=== PATIENT | female | born 1940 | race Caucasian/White ===

== ENCOUNTER 2022-06-07 06:56 | Emergency (ER) | payer OTHER ==
[2022-06-07 07:14] VITALS: BMI 31.3
[2022-06-07] MEDS ORDERED: SODIUM CHLORIDE 0.9% 500 ML INFUS.BAG IV ONE (08:49)
[2022-06-07] MEDS ORDERED: ONDANSETRON 4 MG/2 ML VIAL IVPUSH ONE (09:19)
[2022-06-07] MEDS ORDERED: METOPROLOL TARTRATE 5 MG/5 ML VIAL ONE (09:26)
[2022-06-07] MEDS ORDERED: dilTIAZem HCL 125 MG/25 ML - 25 ML VIAL ONE (09:28)
[2022-06-07] MEDS ORDERED: ONDANSETRON 4 MG/2 ML VIAL ONE (09:33)
[2022-06-07 11:09] LABS: BASO % 0.3 % (0-2.0); EOS % 0.4 % (0-4.5); HEMATOCRIT 41.2 % (32.4-45.2); HEMOGLOBIN 13.3 GM/dL (10.7-15.3); LYMPH % 12.9 % (8-40); MCH 30.4 pg (25.7-33.7); MCHC 32.3 g/dl (32.0-36.0); MEAN CELL VOLUME 94.1 fl (80-96); MEAN PLT VOLUME 10.1 fl (7.5-11.1); NEUT % 76.4 % (42.8-82.8); PLATELET COUNT 238 10^3/uL (134-434); RBC 4.37 M/mm3 (3.60-5.2); WHITE BLOOD COUNT 7.5 K/mm3 (4.0-10.0)
[2022-06-07 11:16] LABS: INR 0.99 (0.83-1.09); PROTHROMBIN TIME (PATIENT) 11.4 SEC (9.7-13.0)
[2022-06-07 11:32] LABS: CHLORIDE 106 mmol/L (98-107); SODIUM 136 mmol/L (136-145)
[2022-06-07 11:34] LABS: BLOOD UREA NITROGEN 23.5 mg/dL (7-18); CALCIUM 8.3 mg/dL (8.5-10.1)
[2022-06-07 11:35] LABS: ALBUMIN 3.7 g/dl (3.4-5.0); CO2 22 mmol/L (21-32); GLUCOSE,RANDOM 91 mg/dL (74-106); LIPASE 37 U/L (73-393); MAGNESIUM 2.2 mg/dL (1.8-2.4)
[2022-06-07 11:38] LABS: CREATININE 0.9 mg/dL (0.55-1.3)
[2022-06-07 11:39] LABS: BILIRUBIN,TOTAL 1.1 mg/dL (0.2-1); TOT PROT 8.4 g/dl (6.4-8.2)
[2022-06-07 11:41] LABS: ALK PHOS 65 U/L (45-117)
[2022-06-07 11:42] LABS: ANION GAP 8 MMOL/L (8-16); SGOT/AST 84 U/L (15-37); SGPT/ALT 30 U/L (13-61)
[2022-06-07 12:25] VITALS: BP 136/68; PULSE 71; RESP 19; TEMP 98
[2022-06-07 13:10] LABS: CALCIUM 8.1 mg/dL (8.5-10.1)
[2022-06-07 13:11] LABS: BLOOD UREA NITROGEN 22.8 mg/dL (7-18)
[2022-06-07 13:14] LABS: CREATININE 0.9 mg/dL (0.55-1.3)
== END 2022-06-07 18:56 ==
LOC: JER 06:56
PROC: 3E033GC Introduction of Other Therapeutic Substance into Peripheral Vein, Percutaneous Approach (ICD-10-PCS; principal; 2022-06-07)
DX: R19.7 Diarrhea, unspecified (principal)
CPT/HCPCS: 0241U-QW; 36415; 74177-TC; 80048; 80053; 83690; 83735; 85025; 85610; 85730; 93005; 93010; 99285-25; Q9967

== ENCOUNTER 2022-06-29 06:41 | Emergency (ER) | payer OTHER ==
[2022-06-29 06:54] VITALS: RESP 18; BMI 30.2
[2022-06-29] MEDS ORDERED: ACETAMINOPHEN 325 MG TABLET (FP) PO ONE (07:25)
[2022-06-29] MEDS ORDERED: ACETAMINOPHEN 325 MG TABLET (FP) ONE (07:43)
[2022-06-29 10:34] VITALS: BP 127/83; PULSE 68; TEMP 98
== END 2022-06-29 11:40 | disposition home or self-care (01) ==
LOC: JER 06:41
DX: S30.0XXA Contusion of lower back and pelvis, initial encounter (principal); W19.XXXA Unspecified fall, initial encounter
CPT/HCPCS: 72170-TC-FY; 73502-TC-RT-FY; 99283-25

== ENCOUNTER 2022-10-26 20:33 | Inpatient (IN) | payer OTHER ==
[2022-10-26 20:50] VITALS: BMI 29.9
[2022-10-26] MEDS ORDERED: LIDOCAINE 5% TOPICAL PATCH TP ONE (21:15)
[2022-10-26] MEDS ORDERED: LIDOCAINE 5% TOPICAL PATCH ONE (21:21)
[2022-10-26 21:51] LABS: EPI CELLS 16 /uL (0-25.1); HYALINE CASTS 1 /uL (0-3.1); PH,URINE 5.5 (5.0-8.0); URINE APPEARANCE CLEAR; URINE BACTERIA 36 /uL (0-1359); URINE BILIRUBIN NEGATIVE (NEGATIVE); URINE COLOR YELLOW; URINE GLUCOSE (UA) NEGATIVE (NEGATIVE); URINE KETONE TRACE (NEGATIVE); URINE LEUK ESTERASE TRACE (NEGATIVE); URINE NITRITE NEGATIVE (NEGATIVE); URINE PROTEIN TRACE (NEGATIVE); URINE RBC 13 /uL (0-23.9); URINE WBC 46 /uL (0-25.8)
[2022-10-26] MEDS ORDERED: ACETAMINOPHEN 500 MG TABLET (FP) PO ONE (21:53)
[2022-10-26] MEDS ORDERED: LIDOCAINE PATCH REMOVAL MC ONE (22:00)
[2022-10-26] MEDS ORDERED: ACETAMINOPHEN 325 MG TABLET (FP) ONE (22:38)
[2022-10-26] MEDS ORDERED: ACETAMINOPHEN INJECTION 100 ML IVPB ONE (22:44)
[2022-10-26 22:51] LABS: BASO % 0.6 % (0-2.0); EOS % 2.2 % (0-4.5); HEMATOCRIT 35.2 % (32.4-45.2); HEMOGLOBIN 11.5 GM/dL (10.7-15.3); LYMPH % 14.3 % (8-40); MCH 29.2 pg (25.7-33.7); MCHC 32.7 g/dl (32.0-36.0); MEAN CELL VOLUME 89.2 fl (80-96); MONO % 9.8 % (3.8-10.2); NEUT % 73.1 % (42.8-82.8); PLATELET COUNT 279 10^3/uL (134-434); RBC 3.95 M/mm3 (3.60-5.2); RDW 14.9 % (11.6-15.6); WHITE BLOOD COUNT 11.4 K/mm3 (4.0-10.0)
[2022-10-26] MEDS ORDERED: ACETAMINOPHEN 1000 MG/100 ML BAG IVPB ONE (22:51)
[2022-10-26 23:19] LABS: POTASSIUM 3.6 mmol/L (3.5-5.1)
[2022-10-26 23:21] LABS: ALBUMIN 3.5 g/dl (3.4-5.0)
[2022-10-26 23:22] LABS: BLOOD UREA NITROGEN 17.6 mg/dL (7-18)
[2022-10-26 23:24] LABS: CREATININE 0.9 mg/dL (0.55-1.3)
[2022-10-26 23:26] LABS: BILIRUBIN,TOTAL 1.1 mg/dL (0.2-1); TOT PROT 7.6 g/dl (6.4-8.2)
[2022-10-27] MEDS ORDERED: POLYETHYLENE GLYCOL 3350 255 GM BTL PO PRN (06:43)
[2022-10-27] MEDS ORDERED: MAGNESIUM HYDROX 2400MG/30ML ORAL SUSPENSION 30 ML CUP PO PRN (06:43)
[2022-10-27] MEDS ORDERED: POLYETHYLENE GLYCOL (HEALTHYLAX) 3350 17 GM PACKET PO PRN (07:20)
[2022-10-27] MEDS: GABAPENTIN 100 MG CAPSULE PO SCH ×3 (08:33→21:29)
[2022-10-27 08:41] LABS: BASO % 0.7 % (0-2.0); EOS % 2.6 % (0-4.5); HEMATOCRIT 33.8 % (32.4-45.2); LYMPH % 12.1 % (8-40); MCH 29.5 pg (25.7-33.7); MCHC 32.5 g/dl (32.0-36.0); MEAN CELL VOLUME 90.7 fl (80-96); MEAN PLT VOLUME 10.2 fl (7.5-11.1); MONO % 10.1 % (3.8-10.2); NEUT % 74.5 % (42.8-82.8); PLATELET COUNT 275 10^3/uL (134-434); RBC 3.73 M/mm3 (3.60-5.2); RDW 14.5 % (11.6-15.6); WHITE BLOOD COUNT 8.7 K/mm3 (4.0-10.0)
[2022-10-27 08:49] LABS: POTASSIUM 3.7 mmol/L (3.5-5.1)
[2022-10-27 08:51] LABS: BLOOD UREA NITROGEN 14.9 mg/dL (7-18)
[2022-10-27 08:54] LABS: CREATININE 0.8 mg/dL (0.55-1.3)
[2022-10-27] MEDS ORDERED: ACETAMINOPHEN WITH CODEINE 300MG/30MG TABLET PO PRN (08:57)
[2022-10-27] MEDS: CHOLECALCIFEROL (VIT D3) 1,000 UNIT (25 MCG) TABLET PO SCH (09:12)
[2022-10-27] MEDS: hydrALAZINE HCL 10 MG TABLET PO SCH ×2 (09:12→21:29)
[2022-10-27] MEDS: ASCORBIC ACID 500 MG TABLET (FP) PO SCH (09:12)
[2022-10-27] MEDS: FUROSEMIDE 40 MG TABLET (FP) PO SCH (09:12)
[2022-10-27] MEDS: PANTOPRAZOLE 40 MG TABLET PO SCH (09:12)
[2022-10-27] MEDS: ACETAMINOPHEN WITH CODEINE 300MG/30MG TABLET PO PRN ×2 (09:13→19:11)
[2022-10-27] MEDS: LIDOCAINE 5% TOPICAL PATCH TP SCH (11:37)
[2022-10-27] MEDS: NEO/POLYMYX B SULF/DEXAMETH OPHTHALMIC 5ML BOTTLE OU SCH (11:38)
[2022-10-27 13:03] LABS: MAGNESIUM 2.2 mg/dL (1.8-2.4)
[2022-10-27 13:06] LABS: PHOSPHOROUS 2.9 mg/dL (2.5-4.9)
[2022-10-27] MEDS: ATORVASTATIN CA 10 MG TABLET (FP) PO SCH (21:29)
[2022-10-27] MEDS: LIDOCAINE PATCH REMOVAL MC SCH (21:42)
[2022-10-28] MEDS: GABAPENTIN 100 MG CAPSULE PO SCH ×3 (05:24→22:00)
[2022-10-28 09:58] LABS: BASO % 0.7 % (0-2.0); EOS % 3.5 % (0-4.5); HEMATOCRIT 35.8 % (32.4-45.2); HEMOGLOBIN 11.8 GM/dL (10.7-15.3); LYMPH % 13.6 % (8-40); MCH 29.3 pg (25.7-33.7); MCHC 32.9 g/dl (32.0-36.0); MEAN CELL VOLUME 89.1 fl (80-96); MONO % 11.4 % (3.8-10.2); NEUT % 70.8 % (42.8-82.8); PLATELET COUNT 287 10^3/uL (134-434); RBC 4.02 M/mm3 (3.60-5.2); WHITE BLOOD COUNT 7.5 K/mm3 (4.0-10.0)
[2022-10-28 10:19] LABS: CALCIUM 8.7 mg/dL (8.5-10.1)
[2022-10-28 10:23] LABS: CREATININE 0.9 mg/dL (0.55-1.3)
[2022-10-28 10:27] LABS: N-TERMINAL BNP 494.6 pg/ml (5-450)
[2022-10-28] MEDS: ACETAMINOPHEN WITH CODEINE 300MG/30MG TABLET PO PRN (10:42)
[2022-10-28] MEDS: LIDOCAINE 5% TOPICAL PATCH TP SCH (10:42)
[2022-10-28] MEDS: PANTOPRAZOLE 40 MG TABLET PO SCH (10:42)
[2022-10-28] MEDS: CHOLECALCIFEROL (VIT D3) 1,000 UNIT (25 MCG) TABLET PO SCH (10:42)
[2022-10-28] MEDS: ASCORBIC ACID 500 MG TABLET (FP) PO SCH (10:42)
[2022-10-28] MEDS: FUROSEMIDE 40 MG TABLET (FP) PO SCH (10:43)
[2022-10-28] MEDS: hydrALAZINE HCL 10 MG TABLET PO SCH ×2 (10:43→22:00)
[2022-10-28] MEDS: NEO/POLYMYX B SULF/DEXAMETH OPHTHALMIC 5ML BOTTLE OU SCH (10:44)
[2022-10-28] MEDS: LIDOCAINE PATCH REMOVAL MC SCH (22:00)
[2022-10-28] MEDS: ATORVASTATIN CA 10 MG TABLET (FP) PO SCH (22:00)
[2022-10-29] MEDS: GABAPENTIN 100 MG CAPSULE PO SCH ×3 (06:11→22:15)
[2022-10-29] MEDS: PANTOPRAZOLE 40 MG TABLET PO SCH (10:22)
[2022-10-29] MEDS: CHOLECALCIFEROL (VIT D3) 1,000 UNIT (25 MCG) TABLET PO SCH (10:22)
[2022-10-29] MEDS: ASCORBIC ACID 500 MG TABLET (FP) PO SCH (10:22)
[2022-10-29] MEDS: hydrALAZINE HCL 10 MG TABLET PO SCH ×2 (10:22→22:15)
[2022-10-29] MEDS: NEO/POLYMYX B SULF/DEXAMETH OPHTHALMIC 5ML BOTTLE OU SCH (10:22)
[2022-10-29] MEDS: FUROSEMIDE 40 MG TABLET (FP) PO SCH (10:22)
[2022-10-29] MEDS: LIDOCAINE 5% TOPICAL PATCH TP SCH (10:22)
[2022-10-29] MEDS ORDERED: AMOX TR/POT CLAV 500MG/125MG TABLETS (FP) PO SCH (17:30)
[2022-10-29] MEDS: ATORVASTATIN CA 10 MG TABLET (FP) PO SCH (22:14)
[2022-10-29] MEDS: LIDOCAINE PATCH REMOVAL MC SCH (22:23)
[2022-10-30] MEDS: GABAPENTIN 100 MG CAPSULE PO SCH ×3 (05:37→21:46)
[2022-10-30] MEDS: LIDOCAINE 5% TOPICAL PATCH TP SCH (10:15)
[2022-10-30] MEDS: FUROSEMIDE 40 MG TABLET (FP) PO SCH (10:15)
[2022-10-30] MEDS: CHOLECALCIFEROL (VIT D3) 1,000 UNIT (25 MCG) TABLET PO SCH (10:15)
[2022-10-30] MEDS: hydrALAZINE HCL 10 MG TABLET PO SCH ×2 (10:15→21:46)
[2022-10-30] MEDS: PANTOPRAZOLE 40 MG TABLET PO SCH (10:16)
[2022-10-30] MEDS: ASCORBIC ACID 500 MG TABLET (FP) PO SCH (10:16)
[2022-10-30] MEDS: NEO/POLYMYX B SULF/DEXAMETH OPHTHALMIC 5ML BOTTLE OU SCH (10:17)
[2022-10-30] MEDS: MAG HYDROX/ALH/SMC/DPHA/LIDO 240 ML MOUTHWASH MM SCH (17:46)
[2022-10-30] MEDS: ATORVASTATIN CA 10 MG TABLET (FP) PO SCH (21:46)
[2022-10-30] MEDS: LIDOCAINE PATCH REMOVAL MC SCH (21:47)
[2022-10-31] MEDS: MAG HYDROX/ALH/SMC/DPHA/LIDO 240 ML MOUTHWASH MM SCH ×4 (00:04→18:02)
[2022-10-31] MEDS: GABAPENTIN 100 MG CAPSULE PO SCH ×3 (05:43→22:04)
[2022-10-31 09:10] LABS: BASO % 0.6 % (0-2.0); EOS % 3.8 % (0-4.5); HEMATOCRIT 35.7 % (32.4-45.2); HEMOGLOBIN 11.7 GM/dL (10.7-15.3); LYMPH % 17.3 % (8-40); MCH 29.4 pg (25.7-33.7); MCHC 32.8 g/dl (32.0-36.0); MEAN CELL VOLUME 89.7 fl (80-96); MONO % 16.2 % (3.8-10.2); NEUT % 62.1 % (42.8-82.8); PLATELET COUNT 329 10^3/uL (134-434); RBC 3.98 M/mm3 (3.60-5.2); RDW 14.5 % (11.6-15.6); WHITE BLOOD COUNT 7.6 K/mm3 (4.0-10.0)
[2022-10-31] MEDS: FUROSEMIDE 40 MG TABLET (FP) PO SCH (09:12)
[2022-10-31] MEDS: LIDOCAINE 5% TOPICAL PATCH TP SCH (09:12)
[2022-10-31] MEDS: ASCORBIC ACID 500 MG TABLET (FP) PO SCH (09:12)
[2022-10-31] MEDS: PANTOPRAZOLE 40 MG TABLET PO SCH (09:12)
[2022-10-31] MEDS: hydrALAZINE HCL 10 MG TABLET PO SCH ×2 (09:12→22:04)
[2022-10-31] MEDS: CHOLECALCIFEROL (VIT D3) 1,000 UNIT (25 MCG) TABLET PO SCH (09:12)
[2022-10-31 09:24] LABS: POTASSIUM 4.6 mmol/L (3.5-5.1)
[2022-10-31 09:28] LABS: CALCIUM 9.1 mg/dL (8.5-10.1)
[2022-10-31 09:29] LABS: BLOOD UREA NITROGEN 32.4 mg/dL (7-18)
[2022-10-31 09:32] LABS: CREATININE 1.3 mg/dL (0.55-1.3)
[2022-10-31] MEDS: NEO/POLYMYX B SULF/DEXAMETH OPHTHALMIC 5ML BOTTLE OU SCH (11:20)
[2022-10-31] MEDS: LIDOCAINE PATCH REMOVAL MC SCH (22:04)
[2022-10-31] MEDS: ATORVASTATIN CA 10 MG TABLET (FP) PO SCH (22:04)
[2022-11-01] MEDS: MAG HYDROX/ALH/SMC/DPHA/LIDO 240 ML MOUTHWASH MM SCH ×4 (01:00→19:11)
[2022-11-01] MEDS: GABAPENTIN 100 MG CAPSULE PO SCH ×3 (05:54→23:46)
[2022-11-01] MEDS: ASCORBIC ACID 500 MG TABLET (FP) PO SCH (09:54)
[2022-11-01] MEDS: PANTOPRAZOLE 40 MG TABLET PO SCH (09:54)
[2022-11-01] MEDS: CHOLECALCIFEROL (VIT D3) 1,000 UNIT (25 MCG) TABLET PO SCH (09:54)
[2022-11-01] MEDS: LIDOCAINE 5% TOPICAL PATCH TP SCH (09:55)
[2022-11-01] MEDS: NEO/POLYMYX B SULF/DEXAMETH OPHTHALMIC 5ML BOTTLE OU SCH (09:58)
[2022-11-01] MEDS: hydrALAZINE HCL 10 MG TABLET PO SCH ×2 (10:17→23:47)
[2022-11-01] MEDS: FUROSEMIDE 40 MG TABLET (FP) PO SCH (10:17)
[2022-11-01] MEDS: ATORVASTATIN CA 10 MG TABLET (FP) PO SCH (23:46)
[2022-11-01] MEDS: LIDOCAINE PATCH REMOVAL MC SCH (23:46)
[2022-11-02] MEDS: MAG HYDROX/ALH/SMC/DPHA/LIDO 240 ML MOUTHWASH MM SCH ×2 (06:12→06:13)
[2022-11-02] MEDS: GABAPENTIN 100 MG CAPSULE PO SCH (06:14)
[2022-11-02 10:35] VITALS: RESP 16; TEMP 97.6
[2022-11-02] MEDS: CHOLECALCIFEROL (VIT D3) 1,000 UNIT (25 MCG) TABLET PO SCH (10:35)
[2022-11-02] MEDS: ASCORBIC ACID 500 MG TABLET (FP) PO SCH (10:35)
[2022-11-02] MEDS: PANTOPRAZOLE 40 MG TABLET PO SCH (10:35)
[2022-11-02] MEDS: LIDOCAINE 5% TOPICAL PATCH TP SCH (10:36)
[2022-11-02] MEDS: NEO/POLYMYX B SULF/DEXAMETH OPHTHALMIC 5ML BOTTLE OU SCH (10:38)
[2022-11-02] MEDS: hydrALAZINE HCL 10 MG TABLET PO SCH (10:56)
[2022-11-02] MEDS: FUROSEMIDE 40 MG TABLET (FP) PO SCH (10:56)
[2022-11-02 11:07] VITALS: BP 130/66; PULSE 84
== END 2022-11-02 12:17 | DRG 552 ==
LOC: JER 20:33 → JERBED 23:19 → J6S 10-27 02:32 → OBSVTOIN 10-30 15:43 → J6S 10-31 12:56
PROVIDERS: ADMIT Internal Medicine; ATTEND Internal Medicine
DX: S22.080A Wedge compression fracture of T11-T12 vertebra, initial encounter for closed fracture (principal); S32.030A Wedge compression fracture of third lumbar vertebra, initial encounter for closed fracture; N39.0 Urinary tract infection, site not specified; I10 Essential (primary) hypertension; E78.5 Hyperlipidemia, unspecified; K21.9 Gastro-esophageal reflux disease without esophagitis; R26.2 Difficulty in walking, not elsewhere classified; R09.02 Hypoxemia; W18.39XA Other fall on same level, initial encounter; Y92.098 Other place in other non-institutional residence as the place of occurrence of the external cause; B96.20 Unspecified Escherichia coli [E. coli] as the cause of diseases classified elsewhere
CPT/HCPCS: 36415; 72131-TC; 72148-TC; 72192-TC; 80048; 80053; 81003; 83735; 83880; 84100; 85025; 87077; 87086; 87186; 87635; 93005; 93010; 97116-GP; 97162-GP; 99285-25; G0378

== ENCOUNTER 2022-12-02 05:04 | Day surgery (SDC) | payer OTHER ==
[2022-11-29 13:48] VITALS: BMI 29.8
[2022-12-02] MEDS ORDERED: LIDOCAINE HCL/PF 1% SDV 5ML VIAL ONE (07:06)
[2022-12-02] MEDS ORDERED: BUPIVACAINE HCL/PF 0.75% 10 ML VIAL ONE (07:06)
[2022-12-02] MEDS ORDERED: ACETAMINOPHEN 500 MG TABLET (FP) PO PRN (07:35)
[2022-12-02] MEDS ORDERED: LIDOCAINE HCL 1% PRESERVATIVE FREE - 30ML VIAL IJ ONE ×3 (07:36→09:50)
[2022-12-02] MEDS ORDERED: BUPIVACAINE HCL/PF 0.75% 10 ML VIAL PNB ONE ×4 (07:37→09:53)
[2022-12-02 08:34] VITALS: RESP 20
[2022-12-02 12:25] VITALS: TEMP 97.2
[2022-12-02 12:34] VITALS: BP 150/74; PULSE 81
== END 2022-12-02 10:55 | disposition home or self-care (01) ==
LOC: JASU-SURG 05:04
PROVIDERS: ATTEND Pain Medicine Pain Medicine
PROC: 3E0T33Z Introduction of Anti-inflammatory into Peripheral Nerves and Plexi, Percutaneous Approach (ICD-10-PCS; 2022-12-02)
PROC: 3E0T3BZ Introduction of Anesthetic Agent into Peripheral Nerves and Plexi, Percutaneous Approach (ICD-10-PCS; principal; 2022-12-02 09:30)
DX: M47.816 Spondylosis without myelopathy or radiculopathy, lumbar region (principal)
CPT/HCPCS: 76000-TC-FY

== ENCOUNTER 2022-12-22 17:38 | Inpatient (IN) | payer OTHER ==
[2022-12-22 19:30] LABS: BASO % 0.6 % (0-2.0); EOS % 0.9 % (0-4.5); HEMATOCRIT 33.7 % (32.4-45.2); HEMOGLOBIN 11.3 GM/dL (10.7-15.3); LYMPH % 17.7 % (8-40); MCH 29.7 pg (25.7-33.7); MCHC 33.4 g/dl (32.0-36.0); MEAN CELL VOLUME 88.8 fl (80-96); MEAN PLT VOLUME 9.2 fl (7.5-11.1); MONO % 13.1 % (3.8-10.2); NEUT % 67.7 % (42.8-82.8); PLATELET COUNT 346 10^3/uL (134-434); RDW 16.8 % (11.6-15.6); WHITE BLOOD COUNT 9.4 K/mm3 (4.0-10.0)
[2022-12-22 19:41] LABS: INR 1.03 (0.83-1.09); POTASSIUM 4.1 mmol/L (3.5-5.1)
[2022-12-22 19:43] LABS: CALCIUM 9.1 mg/dL (8.5-10.1)
[2022-12-22 19:44] LABS: ACTIVATED PTT 27.2 SECONDS (25.2-36.5); ALBUMIN 3.6 g/dl (3.4-5.0); BLOOD UREA NITROGEN 26.7 mg/dL (7-18); MAGNESIUM 2.3 mg/dL (1.8-2.4)
[2022-12-22 19:47] LABS: CREATININE 1.6 mg/dL (0.55-1.3); PHOSPHOROUS 3.8 mg/dL (2.5-4.9)
[2022-12-22 19:48] LABS: BILIRUBIN,TOTAL 0.8 mg/dL (0.2-1); TOT PROT 7.7 g/dl (6.4-8.2)
[2022-12-22] MEDS ORDERED: ACETAMINOPHEN 325 MG TABLET (FP) PO ONE (20:09)
[2022-12-22] MEDS ORDERED: ACETAMINOPHEN 325 MG TABLET (FP) ONE (20:34)
[2022-12-22] MEDS ORDERED: LACTATED RINGERS SOLUTION 1000 ML INFUS.BAG IV ONE (20:38)
[2022-12-23] MEDS ORDERED: SODIUM CHLORIDE 1,000 ML IV SCH (03:00)
[2022-12-23 04:07] VITALS: BMI 25.2
[2022-12-23] MEDS ORDERED: traMADol HCL 50 MG TABLET PO PRN (04:41)
[2022-12-23] MEDS ORDERED: ACETAMINOPHEN 325 MG TABLET (FP) PO PRN (04:46)
[2022-12-23] MEDS: GABAPENTIN 100 MG CAPSULE PO SCH ×3 (06:38→21:34)
[2022-12-23 08:46] LABS: URINE APPEARANCE CLEAR; URINE BILIRUBIN NEGATIVE (NEGATIVE); URINE COLOR YELLOW; URINE GLUCOSE (UA) NEGATIVE (NEGATIVE); URINE KETONE TRACE (NEGATIVE); URINE LEUK ESTERASE 3+ (NEGATIVE); URINE NITRITE NEGATIVE (NEGATIVE); URINE PROTEIN NEGATIVE (NEGATIVE); URINE UROBILINOGEN 0.2 mg/dL (0.2-1.0)
[2022-12-23 09:17] LABS: URINE RBC 6.1 /uL (0-23.9); URINE WBC 228.2 /uL (0-25.8)
[2022-12-23 09:18] LABS: EPI CELLS 11.8 /uL (0-25.1); HYALINE CASTS 0.43 /uL (0-3.1); URINE BACTERIA 541.8 /uL (0-1359)
[2022-12-23 10:03] LABS: URINE CRYSTALS NEGATIVE /hpf
[2022-12-23] MEDS: ASCORBIC ACID 500 MG TABLET (FP) PO SCH (10:17)
[2022-12-23] MEDS: PANTOPRAZOLE 40 MG TABLET PO SCH (10:17)
[2022-12-23] MEDS: POLYETHYLENE GLYCOL (HEALTHYLAX) 3350 17 GM PACKET PO SCH (10:18)
[2022-12-23] MEDS: hydrALAZINE HCL 10 MG TABLET PO SCH ×2 (10:18→21:34)
[2022-12-23] MEDS: CHOLECALCIFEROL (VIT D3) 1,000 UNIT (25 MCG) TABLET PO SCH (10:18)
[2022-12-23 10:51] LABS: BASO % 1.1 % (0-2.0); EOS % 3.9 % (0-4.5); HEMATOCRIT 33.2 % (32.4-45.2); HEMOGLOBIN 11.2 GM/dL (10.7-15.3); LYMPH % 28.3 % (8-40); MCH 29.6 pg (25.7-33.7); MCHC 33.6 g/dl (32.0-36.0); MEAN PLT VOLUME 9.3 fl (7.5-11.1); MONO % 10.6 % (3.8-10.2); NEUT % 56.1 % (42.8-82.8); PLATELET COUNT 324 10^3/uL (134-434); RBC 3.77 M/mm3 (3.60-5.2); RDW 16.6 % (11.6-15.6)
[2022-12-23 11:24] LABS: POTASSIUM 4.1 mmol/L (3.5-5.1)
[2022-12-23 11:32] LABS: CALCIUM 9.3 mg/dL (8.5-10.1)
[2022-12-23 11:33] LABS: ALBUMIN 3.2 g/dl (3.4-5.0)
[2022-12-23 11:34] LABS: BLOOD UREA NITROGEN 23.8 mg/dL (7-18)
[2022-12-23 11:36] LABS: CREATININE 1.1 mg/dL (0.55-1.3); PHOSPHOROUS 4.8 mg/dL (2.5-4.9)
[2022-12-23 11:37] LABS: MAGNESIUM 2.3 mg/dL (1.8-2.4)
[2022-12-23 11:40] LABS: BILIRUBIN,TOTAL 1.1 mg/dL (0.2-1); TOT PROT 7.2 g/dl (6.4-8.2)
[2022-12-23] MEDS ORDERED: MAGNESIUM HYDROX 2400MG/30ML ORAL SUSPENSION 30 ML CUP PO PRN (12:39)
[2022-12-23] MEDS: ACETAMINOPHEN 325 MG TABLET (FP) PO SCH ×2 (13:20→21:33)
[2022-12-23] MEDS: ATORVASTATIN CA 10 MG TABLET (FP) PO SCH (21:32)
[2022-12-24] MEDS: ACETAMINOPHEN 325 MG TABLET (FP) PO SCH ×3 (05:53→21:39)
[2022-12-24] MEDS: GABAPENTIN 100 MG CAPSULE PO SCH ×3 (05:53→21:39)
[2022-12-24] MEDS: hydrALAZINE HCL 10 MG TABLET PO SCH ×2 (09:48→21:39)
[2022-12-24] MEDS: PANTOPRAZOLE 40 MG TABLET PO SCH (09:48)
[2022-12-24] MEDS: ASCORBIC ACID 500 MG TABLET (FP) PO SCH (09:48)
[2022-12-24] MEDS: CHOLECALCIFEROL (VIT D3) 1,000 UNIT (25 MCG) TABLET PO SCH (09:48)
[2022-12-24] MEDS: POLYETHYLENE GLYCOL (HEALTHYLAX) 3350 17 GM PACKET PO SCH (09:48)
[2022-12-24 09:51] LABS: BASO % 0.8 % (0-2.0); EOS % 4.4 % (0-4.5); HEMATOCRIT 31.9 % (32.4-45.2); HEMOGLOBIN 10.8 GM/dL (10.7-15.3); LYMPH % 27.1 % (8-40); MCH 29.6 pg (25.7-33.7); MCHC 33.7 g/dl (32.0-36.0); MEAN CELL VOLUME 87.7 fl (80-96); MEAN PLT VOLUME 9.8 fl (7.5-11.1); MONO % 11.6 % (3.8-10.2); NEUT % 56.1 % (42.8-82.8); PLATELET COUNT 305 10^3/uL (134-434); RBC 3.64 M/mm3 (3.60-5.2); RDW 17.1 % (11.6-15.6); WHITE BLOOD COUNT 5.4 K/mm3 (4.0-10.0)
[2022-12-24 10:08] LABS: POTASSIUM 4.4 mmol/L (3.5-5.1)
[2022-12-24 10:15] LABS: CALCIUM 8.4 mg/dL (8.5-10.1)
[2022-12-24 10:16] LABS: ALBUMIN 2.8 g/dl (3.4-5.0); BLOOD UREA NITROGEN 19.3 mg/dL (7-18)
[2022-12-24 10:19] LABS: CREATININE 0.8 mg/dL (0.55-1.3)
[2022-12-24 10:20] LABS: BILIRUBIN,TOTAL 0.8 mg/dL (0.2-1)
[2022-12-24 10:21] LABS: TOT PROT 6.5 g/dl (6.4-8.2)
[2022-12-24] MEDS: ENOXAPARIN NA (PORCINE) 40 MG/0.4 ML DISP.SYRIN SQ SCH (17:35)
[2022-12-24] MEDS: ATORVASTATIN CA 10 MG TABLET (FP) PO SCH (21:39)
[2022-12-25] MEDS: ACETAMINOPHEN 325 MG TABLET (FP) PO SCH ×3 (05:02→21:49)
[2022-12-25] MEDS: GABAPENTIN 100 MG CAPSULE PO SCH ×3 (05:02→21:49)
[2022-12-25] MEDS: hydrALAZINE HCL 10 MG TABLET PO SCH ×2 (09:54→21:50)
[2022-12-25] MEDS: POLYETHYLENE GLYCOL (HEALTHYLAX) 3350 17 GM PACKET PO SCH (09:54)
[2022-12-25] MEDS: CHOLECALCIFEROL (VIT D3) 1,000 UNIT (25 MCG) TABLET PO SCH (09:54)
[2022-12-25] MEDS: PANTOPRAZOLE 40 MG TABLET PO SCH (09:54)
[2022-12-25] MEDS: ASCORBIC ACID 500 MG TABLET (FP) PO SCH (09:54)
[2022-12-25] MEDS: ENOXAPARIN NA (PORCINE) 40 MG/0.4 ML DISP.SYRIN SQ SCH (09:54)
[2022-12-25] MEDS: ATORVASTATIN CA 10 MG TABLET (FP) PO SCH (21:49)
[2022-12-26 04:00] VITALS: RESP 18
[2022-12-26] MEDS: GABAPENTIN 100 MG CAPSULE PO SCH ×2 (05:47→13:01)
[2022-12-26] MEDS: ACETAMINOPHEN 325 MG TABLET (FP) PO SCH ×2 (05:47→13:02)
[2022-12-26] MEDS: CHOLECALCIFEROL (VIT D3) 1,000 UNIT (25 MCG) TABLET PO SCH (09:06)
[2022-12-26] MEDS: ASCORBIC ACID 500 MG TABLET (FP) PO SCH (09:06)
[2022-12-26] MEDS: ENOXAPARIN NA (PORCINE) 40 MG/0.4 ML DISP.SYRIN SQ SCH (09:06)
[2022-12-26] MEDS: PANTOPRAZOLE 40 MG TABLET PO SCH (09:06)
[2022-12-26] MEDS: POLYETHYLENE GLYCOL (HEALTHYLAX) 3350 17 GM PACKET PO SCH (09:06)
[2022-12-26] MEDS: hydrALAZINE HCL 10 MG TABLET PO SCH (09:06)
[2022-12-26 11:03] LABS: BASO % 1.4 % (0-2.0); EOS % 4.3 % (0-4.5); HEMATOCRIT 32.3 % (32.4-45.2); HEMOGLOBIN 10.7 GM/dL (10.7-15.3); LYMPH % 30.3 % (8-40); MCH 29.2 pg (25.7-33.7); MCHC 33.1 g/dl (32.0-36.0); MEAN CELL VOLUME 88.3 fl (80-96); MEAN PLT VOLUME 9.1 fl (7.5-11.1); MONO % 12.8 % (3.8-10.2); NEUT % 51.2 % (42.8-82.8); PLATELET COUNT 284 10^3/uL (134-434); RBC 3.66 M/mm3 (3.60-5.2); RDW 16.9 % (11.6-15.6); WHITE BLOOD COUNT 6.2 K/mm3 (4.0-10.0)
[2022-12-26 11:24] LABS: POTASSIUM 4.3 mmol/L (3.5-5.1)
[2022-12-26 11:33] LABS: CALCIUM 8.5 mg/dL (8.5-10.1)
[2022-12-26 11:34] LABS: ALBUMIN 2.8 g/dl (3.4-5.0); BLOOD UREA NITROGEN 11.6 mg/dL (7-18)
[2022-12-26 11:37] LABS: CREATININE 0.9 mg/dL (0.55-1.3)
[2022-12-26 11:39] LABS: BILIRUBIN,TOTAL 0.5 mg/dL (0.2-1); TOT PROT 6.6 g/dl (6.4-8.2)
[2022-12-26 14:16] VITALS: BP 126/65; PULSE 68; TEMP 98.3
== END 2022-12-26 16:18 | disposition home or self-care (01) | DRG 92 ==
LOC: JER 17:38 → JERBED 21:45 → J6S 12-23 03:15 → OBSVTOIN 12-25 16:33
PROVIDERS: ADMIT Internal Medicine; ATTEND Internal Medicine
DX: R26.81 Unsteadiness on feet (principal); N17.9 Acute kidney failure, unspecified; S22.088A Other fracture of T11-T12 vertebra, initial encounter for closed fracture; I10 Essential (primary) hypertension; E78.5 Hyperlipidemia, unspecified; K21.9 Gastro-esophageal reflux disease without esophagitis; W18.39XA Other fall on same level, initial encounter; R74.8 Abnormal levels of other serum enzymes; W18.30XA Fall on same level, unspecified, initial encounter; Y92.091 Bathroom in other non-institutional residence as the place of occurrence of the external cause
CPT/HCPCS: 36415; 70450-TC; 71045-TC-FY; 72100-TC-FY; 72125-TC; 72170-TC-FY; 76700-TC; 80053; 81003; 82550; 83735; 84100; 84484; 85025; 85610; 85730; 86850; 86900; 86901; 87086; 87635; 93005; 93010; 97116-GP; 97162-GP; 99285-25; G0378

== ENCOUNTER 2023-01-16 21:59 | Emergency (ER) | payer OTHER ==
[2023-01-16 22:03] VITALS: RESP 17; TEMP 97.6; BMI 31.4
[2023-01-17 01:21] LABS: BASO % 1.1 % (0-2.0); EOS % 3.2 % (0-4.5); HEMATOCRIT 29.8 % (32.4-45.2); HEMOGLOBIN 10.1 GM/dL (10.7-15.3); LYMPH % 23.9 % (8-40); MCH 29.6 pg (25.7-33.7); MCHC 33.9 g/dl (32.0-36.0); MEAN CELL VOLUME 87.5 fl (80-96); MONO % 14.9 % (3.8-10.2); NEUT % 56.9 % (42.8-82.8); PLATELET COUNT 364 10^3/uL (134-434); RBC 3.41 M/mm3 (3.60-5.2); RDW 17.1 % (11.6-15.6); WHITE BLOOD COUNT 6.7 K/mm3 (4.0-10.0)
[2023-01-17 01:38] LABS: POTASSIUM 3.5 mmol/L (3.5-5.1)
[2023-01-17 01:41] LABS: CALCIUM 9.1 mg/dL (8.5-10.1)
[2023-01-17 01:42] LABS: ALBUMIN 3.2 g/dl (3.4-5.0); BLOOD UREA NITROGEN 40.6 mg/dL (7-18)
[2023-01-17 01:45] LABS: CREATININE 1.6 mg/dL (0.55-1.3)
[2023-01-17 01:46] LABS: BILIRUBIN,TOTAL 0.7 mg/dL (0.2-1); TOT PROT 7.3 g/dl (6.4-8.2)
[2023-01-17] MEDS ORDERED: SODIUM CHLORIDE 0.9% 500 ML INFUS.BAG IV ONE (02:36)
[2023-01-17 02:55] LABS: URINE APPEARANCE CLEAR; URINE BILIRUBIN NEGATIVE (NEGATIVE); URINE COLOR YELLOW; URINE GLUCOSE (UA) NEGATIVE (NEGATIVE); URINE KETONE NEGATIVE (NEGATIVE); URINE LEUK ESTERASE NEGATIVE (NEGATIVE); URINE NITRITE NEGATIVE (NEGATIVE); URINE PROTEIN NEGATIVE (NEGATIVE); URINE UROBILINOGEN 0.2 mg/dL (0.2-1.0)
[2023-01-17 03:24] VITALS: BP 108/61; PULSE 68
[2023-01-17 03:28] LABS: INR 1.05 (0.83-1.09); PROTHROMBIN TIME (PATIENT) 12.2 SEC (9.7-13.0)
[2023-01-17 03:31] LABS: ACTIVATED PTT 25.6 SECONDS (25.2-36.5)
== END 2023-01-17 03:59 | disposition short-term general hospital (02) ==
LOC: JER 21:59
DX: S32.038A Other fracture of third lumbar vertebra, initial encounter for closed fracture (principal); N17.9 Acute kidney failure, unspecified; W19.XXXA Unspecified fall, initial encounter; Y92.090 Kitchen in other non-institutional residence as the place of occurrence of the external cause; Z20.822 Contact with and (suspected) exposure to COVID-19
CPT/HCPCS: 0241U-QW; 36415; 70450-TC; 71045-TC-FY; 72125-TC; 72128-TC; 72131-TC; 72170-TC-FY; 80053; 81003; 83880; 84484; 85025; 85610; 85730; 86850; 86900; 86901; 87086; 93005; 93010; 99285-25

== ENCOUNTER 2024-02-28 10:03 | Emergency (ER) | payer OTHER ==
[2024-02-28 10:21] VITALS: RESP 16; TEMP 98.4; BMI 31.2
[2024-02-28 10:55] LABS: BASO % 0.5 % (0-2.0); EOS % 0.8 % (0-4.5); HEMATOCRIT 42.8 % (32.4-45.2); HEMOGLOBIN 14.3 GM/dL (10.7-15.3); LYMPH % 9.1 % (8-40); MCH 30.4 pg (25.7-33.7); MCHC 33.3 g/dl (32.0-36.0); MEAN CELL VOLUME 91.1 fl (80-96); MEAN PLT VOLUME 9.1 fl (7.5-11.1); MONO % 9.7 % (3.8-10.2); NEUT % 79.9 % (42.8-82.8); PLATELET COUNT 193 10^3/uL (134-434); RDW 14.9 % (11.6-15.6)
[2024-02-28 11:16] LABS: POTASSIUM 4.1 mmol/L (3.5-5.1)
[2024-02-28 11:17] LABS: ALBUMIN 3.9 g/dl (3.4-5.0); CALCIUM 8.8 mg/dL (8.5-10.1)
[2024-02-28 11:20] LABS: CREATININE 1.1 mg/dL (0.55-1.3)
[2024-02-28 11:22] LABS: BILIRUBIN,TOTAL 1.4 mg/dL (0.2-1); TOT PROT 7.8 g/dl (6.4-8.2)
[2024-02-28] MEDS ORDERED: ACETAMINOPHEN 325 MG TABLET (FP) ONE (12:40)
[2024-02-28] MEDS: ACETAMINOPHEN 500 MG TABLET (FP) PO ONE (12:48)
[2024-02-28 15:42] VITALS: BP 116/68; PULSE 84
== END 2024-02-28 16:37 ==
LOC: JER 10:03
DX: Z04.3 Encounter for examination and observation following other accident (principal)
CPT/HCPCS: 36415; 70450-TC; 71045-TC-FY; 72125-TC; 72170-TC-FY; 80053; 84484; 85025; 93005; 93010; 99285-25

== ENCOUNTER 2024-03-01 16:27 | Emergency (ER) | payer OTHER ==
[2024-03-01 17:05] VITALS: BMI 22.6
[2024-03-02 00:31] VITALS: BP 148/79; PULSE 50; RESP 17; TEMP 97.3
== END 2024-03-02 05:04 | disposition home or self-care (01) ==
LOC: JER 16:27
DX: U07.1 COVID-19 (principal)
CPT/HCPCS: 99283-25

== ENCOUNTER 2024-12-16 16:49 | Observation (INO) | payer OTHER ==
[2024-12-16 17:12] VITALS: BMI 20.6
[2024-12-16 18:34] LABS: ABSOLUTE IMMATURE GRANULOCYTES 0.08 x10^3/uL (0.0-0.031); BASOPHILS # 0.05 x10^3/uL (0.01-0.08); EOSINOPHIL % 3.4 % (0.7-5.8); EOSINOPHILS # 0.26 x10^3/uL (0.04-0.36); MCHC 31.2 g/dl (32.2-35.5); MEAN CELL VOLUME 96.5 fl (79.4-94.8); MEAN PLT VOLUME 11.2 fl (9.4-12.3); MONOCYTE # 0.96 x10^3/uL (0.24-0.86); MONOCYTE % 12.7 % (4.7-12.5); RDW 14.1 % (12.5-17.0)
[2024-12-16] MEDS ORDERED: VANCOMYCIN 1 GM PREMIX (F) 1 GM/200 ML BAG ONE (18:45)
[2024-12-16] MEDS: VANCOMYCIN 1 GM PREMIX (F) 1 GM/200 ML BAG IVPB ONE (18:56)
[2024-12-16 19:14] LABS: GLUCOSE,RANDOM 80.0 mg/dL (74-106); TOT PROT 6.7 g/dl (6.4-8.2)
[2024-12-16 19:15] LABS: CO2 23.0 mmol/L (21-32)
[2024-12-16 19:17] LABS: ALK PHOS 277.0 U/L (40-150)
[2024-12-16 19:19] LABS: SGOT/AST 44.0 U/L (5-34); SGPT/ALT 71.0 U/L (0-55)
[2024-12-16 19:20] LABS: CREATININE 0.84 mg/dL (0.55-1.3)
[2024-12-16 19:40] LABS: HCV DIAGNOSTIC IN-HOUSE W/RFLX NON-REACTIVE (NONREACTIVE)
[2024-12-16 19:41] LABS: HIV INTERPRETATION NEGATIVE (NEGATIVE)
[2024-12-16 21:26] LABS: ERYTHROCYTE SEDIMENTATION RATE 53 mm/hr (0-30)
[2024-12-17] MEDS: PANTOPRAZOLE 40 MG TABLET PO SCH (06:11)
[2024-12-17 08:05] LABS: ABSOLUTE IMMATURE GRANULOCYTES 0.03 x10^3/uL (0.0-0.031); BASOPHILS # 0.07 x10^3/uL (0.01-0.08); EOSINOPHIL % 4.5 % (0.7-5.8); EOSINOPHILS # 0.30 x10^3/uL (0.04-0.36); MCHC 32.1 g/dl (32.2-35.5); MEAN CELL VOLUME 95.2 fl (79.4-94.8); MEAN PLT VOLUME 11.3 fl (9.4-12.3); MONOCYTE # 0.86 x10^3/uL (0.24-0.86); MONOCYTE % 13.0 % (4.7-12.5); RDW 14.0 % (12.5-17.0)
[2024-12-17] MEDS: GABAPENTIN 100 MG CAPSULE PO SCH (09:53)
[2024-12-17] MEDS: ASCORBIC ACID 500 MG TABLET (FP) PO SCH (09:53)
[2024-12-17] MEDS: CHOLECALCIFEROL (VIT D3) 1,000 UNIT (25 MCG) TABLET PO SCH (09:54)
[2024-12-17] MEDS: ASPIRIN COATED 81 MG TABLET.EC PO SCH (09:54)
[2024-12-17] MEDS: LISINOPRIL 10 MG TABLET PO SCH (09:57)
[2024-12-17 10:37] LABS: GLUCOSE,RANDOM 76.0 mg/dL (74-106)
[2024-12-17 10:39] LABS: CO2 26.0 mmol/L (21-32)
[2024-12-17 10:43] LABS: CREATININE 0.8 mg/dL (0.55-1.3)
[2024-12-17] MEDS: FLUTICASONE PROP 0.05% 16 GM NASAL SPRAY NS SCH (11:20)
[2024-12-17] MEDS: CEFAZOLIN SODIUM 2 GM in DEXTROSE 5%-WATER 100 ML IVPB SCH (14:36)
[2024-12-17] MEDS ORDERED: CEFAZOLIN SODIUM 2 GM VIAL ONE (17:37)
[2024-12-17] MEDS ORDERED: VANCOMYCIN 750 MG in DEXTROSE 5%-WATER - 150 ML IVPB SCH (19:00)
[2024-12-17] MEDS ORDERED: VANCOMYCIN/WATER FOR INJ (PEG) 750 MG/150 ML BAG IVPB SCH (19:00)
[2024-12-18 08:20] LABS: ABSOLUTE IMMATURE GRANULOCYTES 0.05 x10^3/uL (0.0-0.031); BASOPHILS # 0.05 x10^3/uL (0.01-0.08); EOSINOPHIL % 3.4 % (0.7-5.8); EOSINOPHILS # 0.23 x10^3/uL (0.04-0.36); MCHC 32.7 g/dl (32.2-35.5); MEAN CELL VOLUME 93.9 fl (79.4-94.8); MEAN PLT VOLUME 11.0 fl (9.4-12.3); MONOCYTE # 0.86 x10^3/uL (0.24-0.86); MONOCYTE % 12.7 % (4.7-12.5); RDW 13.9 % (12.5-17.0)
[2024-12-18 08:39] LABS: GLUCOSE,RANDOM 80.0 mg/dL (74-106)
[2024-12-18 08:40] LABS: TOT PROT 6.6 g/dl (6.4-8.2)
[2024-12-18 08:41] LABS: CO2 27.0 mmol/L (21-32)
[2024-12-18 08:45] LABS: CREATININE 0.78 mg/dL (0.55-1.3); SGOT/AST 44.0 U/L (5-34)
[2024-12-18 08:49] LABS: ALK PHOS 222.0 U/L (40-150); SGPT/ALT 42.0 U/L (0-55)
[2024-12-18] MEDS: CEFAZOLIN 1 GM/D5W 1 GM/50 ML BAG IVPB SCH (09:16)
[2024-12-20 13:02] VITALS: BP 138/79; PULSE 79; RESP 19; TEMP 98.5
== END 2024-12-20 12:56 ==
LOC: JER 16:49 → JERBED 17:42 → J7W 22:43
PROVIDERS: ADMIT Internal Medicine; ATTEND Internal Medicine
DX: L03.90 Cellulitis, unspecified (principal); K21.9 Gastro-esophageal reflux disease without esophagitis; E78.5 Hyperlipidemia, unspecified; I10 Essential (primary) hypertension; D64.9 Anemia, unspecified
CPT/HCPCS: 36415; 80048; 80053; 82962; 85025; 85651; 86140; 86803; 87389; 87635; 93005; 93010; 93970-TC; 96365; 96367; 97116-GP; 97161-GP; 99285-25; G0378